=== PATIENT | female | born 1950 | race Two or more races ===

== ENCOUNTER 2017-10-04 11:35 | Emergency (ER) | payer OTHER ==
[~2017-10-04] VITALS: Ht 172.7 cm; Wt 54.4 kg
[~2017-10-04 11:35] MED LIST: LORA-259 PO; RISP2TAB23 PO
[2017-10-04] MEDS ORDERED: LORAZEPAM INJ 2 MG/ML VIAL ONE (11:55)
[2017-10-04] MEDS ORDERED: diphenhydrAMINE HCL 50 MG/ML VIAL ONE (11:55)
[2017-10-04] MEDS ORDERED: HALOPERIDOL LACTATE INJ 5 MG/ML VIAL ONE (11:55)
[2017-10-04] MEDS ORDERED: diphenhydrAMINE HCL 50 MG/ML VIAL IV ONE (12:00)
[2017-10-04] MEDS ORDERED: HALOPERIDOL LACTATE INJ 5 MG/ML VIAL IM ONE (12:00)
[2017-10-04] MEDS ORDERED: LORAZEPAM INJ 2 MG/ML VIAL IVP ONE (12:00)
[2017-10-04] MEDS ORDERED: IV NS 0.9% 1,000 ML BAG IV ONE (12:00)
--- NOTE | 2017-10-04 12:22 | NUR ---
WITNESSED AND VERIFIED BY LEONOR VELASCO.
--- NOTE | 2017-10-04 12:22 | NUR ---
PT MEDICATED ORDERED.
--- NOTE | 2017-10-04 12:24 | NUR ---
FAMILY MEMBERS AT BS AND REFUSES FURTHER TREATMENT. THEY ONLY WANT 0.5MG ATIVAN TO BE GIVEN AND WILL BRING PT HOME. MD AWARE.
[2017-10-04 12:58] VITALS: BP 101/59
== END 2017-10-04 12:59 | disposition home or self-care (01) ==
LOC: ER 11:37
DX: F03.90 Unspecified dementia, unspecified severity, without behavioral disturbance, psychotic disturbance, mood disturbance, and anxiety (principal); R55 Syncope and collapse; I10 Essential (primary) hypertension
CPT/HCPCS: 93005; 96372; 99283; A4606 ×2; J2060; J7030; J1200; J1630; Z7610

== ENCOUNTER 2018-03-12 11:37 | Emergency (ER) | payer OTHER ==
[~2018-03-12] VITALS: Ht 172.7 cm; Wt 48.5 kg
--- NOTE | 2018-03-12 11:40 | NUR ---
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 RR IS EVEN AND UNLABORED WITH NAD NOTED. SKIN IS WARM AND DRY. AWAITING MD FOR EVAL.
[2018-03-12] MEDS ORDERED: IV NS 0.9% 1,000 ML BAG IV ONE (12:30)
--- NOTE | 2018-03-12 13:08 | NUR ---
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 Pt's now refusing blood works and kent cath. Dr Lunsford notified.
[2018-03-12] MEDS ORDERED: BISACODYL SUPP (10 MG) 10 MG/SUPP.RECT SUPP.RECT RC ONE ×2 (13:59→14:00)
--- NOTE | 2018-03-12 14:04 | NUR ---
CALLED [facility] AND SPOKE TO [employer] MAKER SIMI. AWAITING MD CALL BACK.
--- NOTE | 2018-03-12 14:13 | NUR ---
in and out kent catheter inserted per sterile protocal. Immediate output 150 ML of urine. specimen sent to lab
[2018-03-12 14:16] LABS: APPEARANCE,URINE Cloudy (CLEAR); BILIRUBIN,URINE Negative (NEGATIVE); BLOOD, URINE Trace-intact Ery/uL (NEGATIVE); COLOR,URINE Yellow (YELLOW); KETONES,URINE Negative (NEGATIVE); LEUKOCYTE ESTERASE ,URINE Large (NEGATIVE); NITRITE, URINE Negative (NEGATIVE); PH,URINE 6.5 (5.0-8.0); PROTEIN,URINE 100 mg/dl (NEGATIVE); UGLUCOSE Negative (NEGATIVE); UROBILINOGEN,URINE 0.2 EU/dL (0.2)
[2018-03-12 14:28] LABS: BACTERIA,URINE Few /HPF (None Seen); SQUAMOUS EPITHELIAL CELL,UR Few /HPF (None Seen); WBC,URINE TOO NUMEROUS TO COUN /HPF (0-3)
[2018-03-12 15:25] VITALS: BP 112/60
--- NOTE | 2018-03-12 15:27 | NUR ---
IV removed. Catheter intact and site benign. Pressure and 4x4 applied to site. No bleeding noted.Patient discharged spouse in stable condition. Written and verbal after care instructions given. Spouse verbalized understanding of instruction.
== END 2018-03-12 15:31 | disposition home or self-care (01) ==
LOC: ER 11:40
DX: R55 Syncope and collapse (principal); G30.9 Alzheimer's disease, unspecified; F02.80 Dementia in other diseases classified elsewhere, unspecified severity, without behavioral disturbance, psychotic disturbance, mood disturbance, and anxiety; K59.00 Constipation, unspecified; I10 Essential (primary) hypertension; R10.30 Lower abdominal pain, unspecified; Z87.440 Personal history of urinary (tract) infections
CPT/HCPCS: 51701; 71045; 81001; 82962; 87077; 87086; 87186; 93005; 96360; 99285; A4606; J7030; 81000-TC; Z7610

== ENCOUNTER 2019-06-19 17:26 | Emergency (ER) | payer OTHER ==
[~2019-06-19] VITALS: Ht 172.7 cm; Wt 53.5 kg
--- NOTE | 2019-06-19 17:35 | NUR ---
PT BIBRA FROM HOME WITNESSED SEIZURE 30-4OSECS PER EMS, +MOUTH TRAUMA, MINIMAL BLEEDING. PT ALERT BUT NON VERBAL, VSS, BREATHING EVEN AND UNLABORED ON ROOM AIR W/ NAD. SEIZURE PRECAUTIONS IMPLEMENTED
[2019-06-19 18:26] LABS: BASOPHILS % (AUTO) 0.7 % (0.0-2.0); EOSINOPHILS % (AUTO) 0.8 % (0.0-6.0); HEMATOCRIT 41 % (33-45); HEMOGLOBIN 13.7 g/dL (11.5-14.8); LYMPHOCYTES # (AUTO) 2.1 /CMM (0.8-4.8); MEAN CORPUSCULAR HGB CONC 33 g/dl (31.0-36.0); MEAN CORPUSCULAR VOLUME 86 fL (82-100); MONOCYTES # (AUTO) 0.4 /CMM (0.1-1.30); MONOCYTES % (AUTO) 7.2 % (2.0-12.0); NEUTROPHILS # (AUTO) 2.7 /CMM (1.8-8.9); NEUTROPHILS % (AUTO) 51.3 % (43.0-81.0); PLATELET COUNT (AUTO) 396 /CMM (150-450); RED BLOOD CELL COUNT(AUTO) 4.75 MIL/uL (4.0-5.2); WHITE BLOOD COUNT (AUTO) 5.2 K/uL (4.3-11.0)
[2019-06-19 18:33] LABS: CALCIUM, SERUM 9.5 mg/dL (8.5-10.1); POTASSIUM 3.9 mmol/L (3.5-5.1)
[2019-06-19] MEDS ORDERED: VALPROATE 1,000 MG in IV D5W 100 ML IV STA (19:34)
[2019-06-19 21:32] VITALS: BP 110/66
== END 2019-06-19 21:41 | disposition home or self-care (01) ==
LOC: ER 17:28
DX: G40.909 Epilepsy, unspecified, not intractable, without status epilepticus (principal); G30.9 Alzheimer's disease, unspecified; I10 Essential (primary) hypertension; Z79.899 Other long term (current) drug therapy
CPT/HCPCS: 36415; 80048; 80164; 85025; 96365; 99283; J3490; J7060